=== PATIENT | male | born 1985 | race African-American/Black ===

== ENCOUNTER 2024-10-12 12:08 | Emergency (ER) | payer SELFPAY ==
[2024-10-12] MEDS ORDERED: Boostrix 0.5 ML (Tdap) VIAL (>/=7 yrs of age) ONE (13:16)
[2024-10-12] MEDS ORDERED: Ketorolac Tromethamine 30 MG (1 mL) VIAL ONE (13:16)
== END 2024-10-12 13:47 | disposition home or self-care (01) ==
LOC: CSHERS 12:08
DX: S61.452A Open bite of left hand, initial encounter (principal); F17.210 Nicotine dependence, cigarettes, uncomplicated; W54.0XXA Bitten by dog, initial encounter; Z23 Encounter for immunization
CPT/HCPCS: 90471; 90715; 96372; J1885